=== PATIENT | female | born 2000 | race Two or more races ===

== ENCOUNTER 2018-02-03 12:42 | Emergency (ER) | payer OTHER ==
[~2018-02-03] VITALS: Ht 157.5 cm; Wt 77.6 kg
[2018-02-03 12:49] VITALS: Ht 157.5 cm; Wt 77.6 kg
[2018-02-03 15:09] VITALS: BP 103/62
== END 2018-02-03 15:09 | disposition home or self-care (01) ==
LOC: ED 12:42
DX: L02.415 Cutaneous abscess of right lower limb (principal)
CPT/HCPCS: 83880; 84439; J2001

== ENCOUNTER 2018-02-05 09:53 | Emergency (ER) | payer OTHER ==
[~2018-02-05] VITALS: Ht 157.5 cm; Wt 78.0 kg
[2018-02-05 10:06] VITALS: Ht 157.5 cm; Wt 78.0 kg
[2018-02-05 10:40] VITALS: BP 103/73
== END 2018-02-05 10:40 | disposition home or self-care (01) ==
LOC: ED 09:53
DX: Z48.01 Encounter for change or removal of surgical wound dressing (principal)

== ENCOUNTER 2018-08-28 19:06 | Inpatient (IN) | payer OTHER ==
[~2018-08-28] VITALS: Ht 160 cm; Wt 73.0 kg
[2018-08-28 21:31] LABS: BASOPHIL % 0.4 % (0-2); PLATELET COUNT 331 x10^3mcL (130-400)
[2018-08-28 21:47] LABS: ALKALINE PHOSPHATASE 253 U/L (46-116); ALT/SGPT 16 U/L (14-59); AST/SGOT 9 U/L (15-37); BILIRUBIN TOTAL 0.5 mg/dL (0.20-1.00); CALCIUM 8.9 mg/dL (8.5-10.1); CARBON DIOXIDE 24.4 mmol/L (21-32); CHLORIDE SERUM 92 mmol/L (98-107); CREATININE SERUM 0.6 mg/dL (0.6-1.0); GFR1 > 60 mL/min; POTASSIUM SERUM 3.6 mmol/L (3.5-5.1); SODIUM SERUM 127 mmol/L (136-145); TOTAL PROTEIN, SERUM 7.3 g/dL (6.4-8.2)
[2018-08-28 21:49] LABS: ALBUMIN 2.9 g/dL (3.4-5.0)
[2018-08-28] MEDS ORDERED: METFORMIN HYD1000 M2 PO (21:50)
[2018-08-28 21:51] LABS: GLUCOSE SERUM 587 mg/dL (74-106)
[2018-08-28 21:53] LABS: UA SPECIFIC GRAVITY <=1.005 (1.005-1.035); microscopic required? YES; urine erythrocyte 3+ (NEGATIVE)
[2018-08-28 22:58] VITALS: BP 108/72
[2018-08-28 23:09] LABS: AMPHETAMINE QUAL UR NONE DETECTED (See below)
[2018-08-28 23:13] LABS: AMYLASE 28 U/L (25-115); CHOLESTEROL 250 mg/dL (<200); CHOLESTEROL/HDL RATIO 8.1; HDL CHOLESTEROL 31 mg/dL (40-60); LIPASE 198 IU/L (73-393); MAGNESIUM 1.8 mg/dL (1.8-2.4); PHOSPHOROUS 3.9 mg/dL (2.5-4.9); TRIGLYCERIDES 743 mg/dL (<150)
[2018-08-28 23:21] LABS: FREE T4 1.32 ng/dL (0.76-1.46); FREE THYROXINE INDEX 2.6 ug/dL (1.4-4.5); T4(THYROXINE) 7.5 ug/dL (4.7-13.3)
[2018-08-29 00:13] LABS: T3 TOTAL 0.9 ng/mL
[2018-08-29 02:39] LABS: BASOPHIL % 0.6 % (0-2); PLATELET COUNT 292 x10^3mcL (130-400); RED CELL DISTRIBUTION WIDTH 13.3 % (11.5-14.5)
[2018-08-29 02:45] LABS: CALCIUM 7.6 mg/dL (8.5-10.1); CHLORIDE SERUM 102 mmol/L (98-107); CREATININE SERUM 0.4 mg/dL (0.6-1.0); GFR1 > 60 mL/min; GLUCOSE SERUM 270 mg/dL (74-106); MAGNESIUM 1.8 mg/dL (1.8-2.4); PHOSPHOROUS 3.4 mg/dL (2.5-4.9); SODIUM SERUM 136 mmol/L (136-145)
[2018-08-29 06:19] VITALS: BP 98/53
[2018-08-29 08:55] VITALS: BP 95/42
[2018-08-29 17:43] VITALS: BP 112/71
[2018-08-29 18:11] LABS: BASOPHIL % 0.4 % (0-2); PLATELET COUNT 325 x10^3mcL (130-400); RED CELL DISTRIBUTION WIDTH 13.4 % (11.5-14.5)
[2018-08-29 20:59] VITALS: BP 108/64
[2018-08-30 04:45] VITALS: BP 109/55
[2018-08-30 06:49] LABS: BASOPHIL % 1.2 % (0-2); CALCIUM 7.7 mg/dL (8.5-10.1); CARBON DIOXIDE 24.2 mmol/L (21-32); CHLORIDE SERUM 101 mmol/L (98-107); CREATININE SERUM 0.4 mg/dL (0.6-1.0); GFR1 > 60 mL/min; GLUCOSE SERUM 278 mg/dL (74-106); MAGNESIUM 1.4 mg/dL (1.8-2.4); PHOSPHOROUS 3.8 mg/dL (2.5-4.9); PLATELET COUNT 306 x10^3mcL (130-400); POTASSIUM SERUM 3.4 mmol/L (3.5-5.1); RED CELL DISTRIBUTION WIDTH 13.4 % (11.5-14.5); SODIUM SERUM 136 mmol/L (136-145)
[2018-08-30 08:58] VITALS: BP 111/60
[2018-08-30 09:15] VITALS: BP 97/50
[2018-08-30 11:35] VITALS: BP 94/59
[2018-08-30 13:51] LABS: RAPID PLASMA REAGIN Non Reactive (Non Reactive)
[2018-08-30 16:18] VITALS: BP 114/63
[2018-08-30 21:27] VITALS: BP 90/53
[2018-08-31 05:49] VITALS: BP 93/65
[2018-08-31 06:06] LABS: BASOPHIL % 0.5 % (0-2); PLATELET COUNT 319 x10^3mcL (130-400); RED CELL DISTRIBUTION WIDTH 13.2 % (11.5-14.5)
[2018-08-31 06:27] LABS: CALCIUM 8.3 mg/dL (8.5-10.1); CARBON DIOXIDE 27.2 mmol/L (21-32); CHLORIDE SERUM 105 mmol/L (98-107); CREATININE SERUM 0.4 mg/dL (0.6-1.0); GFR1 > 60 mL/min; GLUCOSE SERUM 238 mg/dL (74-106); MAGNESIUM 1.5 mg/dL (1.8-2.4); PHOSPHOROUS 4.6 mg/dL (2.5-4.9); POTASSIUM SERUM 3.6 mmol/L (3.5-5.1); SODIUM SERUM 143 mmol/L (136-145)
[2018-08-31 11:51] VITALS: BP 94/48
[2018-08-31 14:04] VITALS: Ht 160 cm; Wt 73.0 kg
[2018-08-31 14:10] VITALS: BP 103/79
[2018-08-31] MEDS ORDERED: BG FS (15:09)
[2018-08-31] MEDS ORDERED: LEVEMIR100 U/M1 SC (15:09)
[2018-08-31] MEDS ORDERED: HUMALOG MIX 50/10 ML SC (15:11)
[2018-08-31] MEDS ORDERED: BACTRIM DS1 TAB PO (15:12)
[2018-08-31 15:36] VITALS: BP 103/79
== END 2018-08-31 16:50 | disposition home or self-care (01) | DRG 758 ==
LOC: ED 19:06 → MU 22:14 → DU 22:14 → MU 22:40 → DU 22:50
PROVIDERS: Emergency Medicine; Family Medicine; Internal Medicine
DX: N76.5 Ulceration of vagina (principal); L03.315 Cellulitis of perineum; E44.0 Moderate protein-calorie malnutrition; D68.69 Other thrombophilia; L02.31 Cutaneous abscess of buttock; L02.215 Cutaneous abscess of perineum; E10.65 Type 1 diabetes mellitus with hyperglycemia; E78.5 Hyperlipidemia, unspecified; B96.20 Unspecified Escherichia coli [E. coli] as the cause of diseases classified elsewhere; E83.42 Hypomagnesemia; E87.6 Hypokalemia; D64.9 Anemia, unspecified; Z79.84 Long term (current) use of oral hypoglycemic drugs; Z79.3 Long term (current) use of hormonal contraceptives; Z83.3 Family history of diabetes mellitus; Z68.28 Body mass index [BMI] 28.0-28.9, adult
CPT/HCPCS: 82962; 84439; 87491; 87591; J0295; J1815; J1817; J1885; J2543; J7030; Q0092

== ENCOUNTER 2020-01-12 16:44 | Emergency (ER) | payer OTHER ==
[~2020-01-12] VITALS: Ht 160 cm; Wt 77.1 kg
[~2020-01-12 16:44] MED LIST: BACTRIM DS1 TAB PO; BG FS; HUMALOG MIX 50/10 ML SC; LEVEMIR100 U/M1 SC; METFORMIN HYD1000 M2 PO
[2020-01-12 17:00] VITALS: Ht 160 cm; Wt 77.1 kg
[2020-01-12 17:20] LABS: BASOPHIL % 0.4 % (0-2); PLATELET COUNT 371 x10^3mcL (130-400); RED CELL DISTRIBUTION WIDTH 12.9 % (11.5-14.5)
[2020-01-12 17:39] LABS: microscopic required? NO
[2020-01-12 17:42] LABS: CALCIUM 8.6 mg/dL (8.5-10.1); CARBON DIOXIDE 27.7 mmol/L (21-32); CHLORIDE SERUM 91 mmol/L (98-107); CREATININE SERUM 0.9 mg/dL (0.6-1.0); GFR1 > 60 mL/min; POTASSIUM SERUM 3.5 mmol/L (3.5-5.1); SODIUM SERUM 130 mmol/L (136-145)
[2020-01-12 17:50] LABS: urine erythrocyte NEGATIVE (NEGATIVE)
[2020-01-12 17:51] LABS: ALKALINE PHOSPHATASE 207 U/L (46-116); BILIRUBIN TOTAL 0.4 mg/dL (0.20-1.00); TOTAL PROTEIN, SERUM 7.5 g/dL (6.4-8.2)
[2020-01-12 17:53] LABS: GLUCOSE SERUM 576 mg/dL (74-106)
[2020-01-12 18:11] LABS: AST/SGOT 24 U/L (15-37)
[2020-01-12 18:12] LABS: ALT/SGPT 8 U/L (14-59)
[2020-01-12 20:40] VITALS: BP 125/65
== END 2020-01-12 20:40 | disposition home or self-care (01) ==
LOC: ED 16:44
PROVIDERS: Emergency Medicine
DX: E11.65 Type 2 diabetes mellitus with hyperglycemia (principal)
CPT/HCPCS: 82962; J1815; J1885; J2765; J7030

== ENCOUNTER 2020-07-08 06:34 | Emergency (ER) | payer OTHER ==
[~2020-07-08] VITALS: Ht 162.6 cm; Wt 78.7 kg
[2020-07-08 06:47] VITALS: BP 115/79; Ht 162.6 cm; Wt 78.7 kg
== END 2020-07-08 07:39 | disposition home or self-care (01) ==
LOC: ED 06:34
DX: K08.89 Other specified disorders of teeth and supporting structures (principal); E11.9 Type 2 diabetes mellitus without complications